=== PATIENT | male | born 1985 | race Caucasian/White ===

== ENCOUNTER 2016-07-23 20:34 | Emergency (ER) | payer OTHER ==
[~2016-07-23] VITALS: Ht 172.7 cm; Wt 89.1 kg
[2016-07-23 20:43] VITALS: TEMP 36.8; Ht 172.7 cm; Wt 89.1 kg
[2016-07-23] MEDS ORDERED: RANI150T3 PO (21:04)
[2016-07-23] MEDS ORDERED: AZITHROMYCIN 250 MG TAB PO STA (21:20)
[2016-07-23] MEDS ORDERED: IBUPROFEN 600 MG TAB PO STA (21:21)
[2016-07-23] MEDS ORDERED: HYCODAN 60ML BOTTLE HOMEPACK PO ONE (21:30)
[2016-07-23] MEDS ORDERED: ALBUTEROL HFA 8 GM INHALER INH ONE (21:30)
[2016-07-23] MEDS ORDERED: AZIT-60 PO (21:35)
[2016-07-23 21:57] VITALS: BP 147/101; PULSE 97; O2SAT 98
--- NOTE | 2016-07-23 23:09 | EMERGENCY ROOM VISIT NOTE ---
History Report prepared by Ebenezer: Lauren Senior Under the Supervision of: Dr. Tello Lo M.D. First contact with patient: 21:06 Chief Complaint: FLU LIKE SX Stated Complaint: COUGH, SORE THROAT, EARS HURT, STUFFY/RUNNY NOSE History of Present Illness The patient is a 31 year old male who presents to the Emergency Room with complaints of worsening flu-like symptoms for the past 4 days. He has been experiencing a productive cough, ear pain, sore throat, and sinus congestion. He has been taking Robitussin and Sudafed for his symptoms. He states that today his congestion has started to settle into his chest. He has been unable to sleep due to his symptoms. He also reports diarrhea and aching pain in his back. The patient rates his pain as a 6/10 in severity. Pt denies LOC, headache , fevers, chills, diaphoresis, visual changes, neck pain, chest pain, nausea, vomiting, abdominal pain, melena, hematochezia, urinary symptoms, numbness, weakness, lymphadenopathy, rash, or other complaints. He denies any sick contacts. Source of History: patient Onset: 4 days ago Position: other (global) Symptom Intensity: 6/10 Quality: other (flu-like) Timing: worsening Modifying Factors (Relieving): other (Sudafed/Robitussin) Associated Symptoms: + back pain, + cough, + diarrhea, + sorethroat Note: Pt notes sinus congestion and chest congestion. Review of Systems See HPI for pertinent positives and negatives. A total of ten systems were reviewed and were otherwise negative. Past Medical & Surgical Medical Problems: (1) Fatty liver (2) History of cholecystectomy (3) Kidney stone Family History Cancer Diabetes mellitus FH: heart disease Social History Smoking Status: Current Every Day Smoker Alcohol Use: none Marital Status: single Occupation Status: employed Current/Historical Medications Scheduled Azithromycin (Zithromax), 250 MG PO DAILY Scheduled PRN Ranitidine Hcl (Zantac), 150 MG PO DAILY PRN for Heartburn Allergies Coded Allergies: No Known Allergies (Unverified , 07/23/16) Physical Exam Vital Signs Date Time Temp Pulse Resp B/P Pulse Ox O2 Delivery O2 Flow Rate FiO2 07/23/16 21:57 97 20 147/101 98 07/23/16 20:43 36.8 99 18 141/91 99 Room Air Physical Exam GENERAL: Awake, alert, mildly ill appearing, no distress HEAD: Normocephalic, atraumatic. No edema. EYES: Normal conjunctiva. Sclera non-icteric. EARS: Right ear with mild fluid and mild redness. Left TM normal. NOSE: Mild congestion. OROPHARYNX: Lips, tongue, and mucosa unremarkable. No erythema or exudate. NECK: Supple. No nuchal rigidity. FROM. No adenopathy. Negative jolt accentuation test. RESPIRATORY: Small wheezing cleared with coughing on the right side. CTA bilaterally. No rales or rhonchi. CARDIAC: Borderline tachycardic rate, normal rhythm. ABDOMEN: Soft, non distended. No tenderness to palpation. NEURO: Normal sensorium. SKIN: No rash or jaundice noted Medical Decision & Procedures Medications Administered Medications (Trade) Dose Ordered Sig/Catie Route Start Time Stop Time Status Last Admin Dose Admin Azithromycin (Zithromax Tab) 500 mg NOW STAT PO 07/23/16 21:20 07/23/16 21:22 DC 07/23/16 21:29 500 MG Hydrocodone Bit/ Homatropine Methylb (Hycodan Elix Homepack 5/1.5MG/ 5ML) 1 homepack UD ONCE PO 07/23/16 21:30 07/23/16 21:31 DC 07/23/16 21:30 1 HOMEPACK Albuterol (Ventolin Hfa Inhaler) 2 puffs NOW ONCE INH 07/23/16 21:30 07/23/16 21:31 DC 07/23/16 21:30 2 PUFFS Ibuprofen (Motrin Tab) 600 mg NOW STAT PO 07/23/16 21:21 07/23/16 21:22 DC 07/23/16 21:28 600 MG ED Course 2114: The patient was evaluated in room C10. A complete history and physical exam was performed. At this time I discussed the results and treatment plan with the patient. I answered all pertaining questions that he had. He expressed understanding and verbalized agreement. The patient will be discharged home. 2119: Azithromycin 500 mg PO 2120: Ibuprofen 600 mg PO 2129: Albuterol 2 puffs INH, Hydrocodone Bit/Homatropine Methylb PO 1 homepack Medical Decision Triage Nursing notes reviewed. The patient's presentation and history were concerning for cough and URI symptoms. Etiologies such as viral syndrome, otitis, pharyngitis, pneumonia, sinusitis, as well as others were entertained. The patient was evaluated. He had a slight wheeze in the right side. He is a smoker. Patient had some slight fluid in the ear as well. He has sinus congestion. The patient was given an albuterol MDI, Motrin, Hycodan cough syrup to go, and a dose of Zithromax. I discussed treatment with him conservatively and he was in agreement. As she is doing relatively well this point in time we can defer blood work or x-ray imaging given I am going to treat him clinically. The patient was in agreement. I did counselor at law months sensation. The patient will follow-up with his PCP or return back to Emergency Room for any worsening symptoms.I gave my usual and customary discussion regarding this issue. By the evaluation outlined above other emergent etiologies such as those listed in the differential, as well as others, were deemed relatively unlikely. The patient and significant other were informed about the findings as listed above. All questions were answered and they were pleased with the treatment. Return instructions were outlined and the patient was discharged in stable condition. The patient was referred to his PCP for follow-up this week for a recheck of the current condition. The chart was completed utilizing [employer] Speech voice recognition software. Grammatical errors, random word insertions, pronoun errors, and incomplete sentences are an occasional consequence of this system due to software limitations, ambient noise, and hardware issues. Any formal questions or concerns about the content, text, or information contained within the body of this dictation should be directly addressed to the physician for clarification. Impression Primary Impression: Productive cough Additional Impressions: Wheezing Sinus congestion Scribe Attestation The scribe's documentation has been prepared under my direction and personally reviewed by me in its entirety. I confirm that the note above accurately reflects all work, treatment, procedures, and medical decision making performed by me. Departure Information Dispostion Home / Self-Care Prescriptions Azithromycin (ZITHROMAX) 250 Mg Tab 250 MG PO DAILY, #4 TAB Prov: Tello Lo MD 07/23/16 Referrals Kun Thomas M.D. (PCP) Forms HOME CARE DOCUMENTATION FORM, IMPORTANT VISIT INFORMATION Patient Instructions [facility] Additional Instructions Albuterol Inhaler: Take 2 puffs four times daily for five days, then as needed. Azithromycin(Zithromax) 250mg: Take one a day for 4 additional days. All antibiotics can cause diarrhea. If this occurs and you feel worse or it does not resolve in 1-2 days follow up with your doctor or return to the Emergency Department as this could be signs of serious underlying problems. Any medication can cause an allergic reaction, stop the pills immediately and return to the ER for rash, hives, breathing difficulties, or swelling. Acetaminophen(Tylenol) may be used for fever or pain. Use 1000mg every six hours as needed. Avoid using more than 4000mg in a 24 hour period. (AND/OR) Ibuprofen(Motrin, Advil) may be used for fever or pain. Use 600mg every six hours as needed. Take with food. Avoid using more than 2400mg in a 24 hour period. Do not use 2400mg per day for more than three consecutive days without physician direction. Prolonged inappropriate use can lead to stomach upset or ulcers. Hycodan syrup: use one teaspoon every 4 hours only as needed for severe cough. May cause drowsiness. No driving if using this medication. Rest and drink plenty of fluids. Avoid smoke/smoking. Return to the ER for chest pain, difficulty breathing, fevers, vomiting, worsening of your condition, or as needed. Follow up with your primary physician this week for a recheck of your current condition. Problem Qualifiers
== END 2016-07-23 21:59 | disposition home or self-care (01) ==
LOC: C.EDB 20:35 → C.EDC 21:59
DX: R05 Cough (principal); R06.2 Wheezing; R09.81 Nasal congestion; H92.09 Otalgia, unspecified ear; J02.9 Acute pharyngitis, unspecified; R19.7 Diarrhea, unspecified; M54.9 Dorsalgia, unspecified; F17.200 Nicotine dependence, unspecified, uncomplicated

== ENCOUNTER 2017-10-20 22:45 | Emergency (ER) | payer OTHER ==
[~2017-10-20] VITALS: Ht 172.7 cm; Wt 82.3 kg
[~2017-10-20 22:45] MED LIST: RANI150T3 PO
[2017-10-20 22:50] VITALS: BP 132/91; PULSE 106; TEMP 36.8; O2SAT 97; Ht 172.7 cm; Wt 82.3 kg
[2017-10-20] MEDS ORDERED: DOXYCYCLINE HYCLATE 100 MG CAP PO STA (23:00)
[2017-10-20] MEDS ORDERED: DOXY100C PO (23:08)
--- NOTE | 2017-10-22 00:08 | EMERGENCY ROOM VISIT NOTE ---
History First contact with patient: 22:54 Chief Complaint: BITE Stated Complaint: TICK BITE ON THUMB History of Present Illness The patient is a 32 year old male who presents to the Emergency Room with complaints of left thumb pain as well as a tick bite on his right leg. The patient states that he noticed a tick bite to his right thigh 4 days ago, and believes he was able to remove it in full. Additionally the patient has an infection of his left thumb that has been worsening over the past week. The patient does not recall injury or trauma. The thumb symptoms began after trimming his nails. He rates his discomfort a 4/10. Of note, he states that he has had a rash in the area where the tick was. No reports of fever or chills. The patient considers himself otherwise usually healthy and up-to-date on his tetanus. Review of Systems More than 10 systems were reviewed and otherwise negative with the exception of history of present illness. Past Medical/Surgical History Medical Problems: (1) Fatty liver (2) History of cholecystectomy (3) Kidney stone Family History Cancer Diabetes mellitus FH: heart disease Social History Smoking Status: Current Every Day Smoker Alcohol Use: none Marital Status: single Occupation Status: employed Current/Historical Medications Scheduled Doxycycline Hyclate (Vibramycin), 100 MG PO BID Scheduled PRN Ranitidine Hcl (Zantac), 150 MG PO DAILY PRN for Heartburn Physical Exam Vital Signs Date Time Temp Pulse Resp B/P (MAP) Pulse Ox O2 Delivery O2 Flow Rate FiO2 10/20/17 22:50 36.8 106 18 132/91 97 Room Air Physical Exam VITALS: Vitals are noted on the nurse's note and reviewed by myself. Vital signs stable. GENERAL: Well-developed, well-nourished, white male, who is in no acute distress and resting comfortably. Patient is cooperative with the examination. HEART: Regular rate and rhythm without murmurs gallops or rubs. LUNGS: Clear to auscultation bilaterally without wheezes, rales or rhonchi. No retractions or accessory muscle use. MUSCULOSKELETAL: Paronychia appreciated to the medial aspect of the left thumb and cuticle. This appears to be with mild serosanguineous drainage. No obvious purulence is noted. Neurovascular status is intact to the thumb. There is no lymphangitic streaking. Additionally there is a bull's-eye type rash measuring approximately 8 cm in diameter appreciated on the posterior aspect of the right thigh concerning for erythema migrans. NEURO: Patient was alert and oriented to person place and time. CN II through XII grossly intact Medical Decision & Procedures ED Course Physical exam and history were performed. Nursing notes, EMR, and Medication List were personally reviewed. Patient appears to have both a paronychia as well as a tick bite with erythema migrans. The patient and I had a discussion regarding options of care and utilizing shared decision making we elected to begin doxycycline. The patient was given a first dose to take tonight with food. We did discuss the side effects of the medication. The patient is to follow with his primary care physician with any ongoing or persisting symptoms. He was otherwise invited back to the ER anytime and was pleased with plan of care. The chart was completed utilizing [employer] Voice Recognition Software. Grammatical errors, random word insertions, pronoun errors, and incomplete sentences are an occasional consequence of this system due to software limitations, ambient noise, and hardware issues. Any formal questions or concerns about the content, text, or information contained within the body of this dictation should be directly addressed to the provider for clarification. . Medical Decision Differential diagnosis: Etiologies such as cellulitis, abscess, MRSA infection, DVT, necrotizing fasciitis, dermatitis, drug eruption, as well as others were entertained.. Impression Primary Impression: Paronychia of thumb, left Additional Impressions: Tick bite Erythema migrans (Lyme disease) Departure Information Dispostion Home / Self-Care Condition GOOD Prescriptions Doxycycline Hyclate (VIBRAMYCIN) 100 Mg Cap 100 MG PO BID for 21 Days, #42 CAP Prov: Yaw Kapoor PA-C 10/20/17 Forms HOME CARE DOCUMENTATION FORM, IMPORTANT VISIT INFORMATION Patient Instructions My [facility] Additional Instructions You were seen and evaluated today on an emergency basis only. This is not a substitute for, or an effort to provide, complete comprehensive medical care. It is not possible to recognize and treat all injuries or illnesses in a single emergency department visit. For this reason it is recommended that you followup with your primary care physician with any ongoing or persisting symptoms. Doxycycline twice a day for 21 days. Avoid exposure to the sun/UV light while on this medication or use frequent application of SPF 50 or higher due to increased sensitivity to UV rays and high risk for severe rodriguez. You are welcome to return to the emergency department anytime with new, worsening, or concerning symptoms. Problem Qualifiers
== END 2017-10-20 23:27 | disposition home or self-care (01) ==
LOC: C.EDB 22:46
DX: L03.012 Cellulitis of left finger (principal); S80.861A Insect bite (nonvenomous), right lower leg, initial encounter; W57.XXXA Bitten or stung by nonvenomous insect and other nonvenomous arthropods, initial encounter; A69.20 Lyme disease, unspecified; F17.200 Nicotine dependence, unspecified, uncomplicated

== ENCOUNTER 2017-11-09 15:29 | Emergency (ER) | payer OTHER ==
[~2017-11-09] VITALS: Ht 172.7 cm; Wt 82.8 kg
[~2017-11-09 15:29] MED LIST changes: +DOXY100C PO
[2017-11-09 15:30] VITALS: BP 128/87; PULSE 89; TEMP 36.9; O2SAT 99; Ht 172.7 cm; Wt 82.8 kg
[2017-11-09] MEDS ORDERED: ALBUTEROL HFA 8 GM INHALER INH STA (15:47)
--- NOTE | 2017-11-09 21:33 | EMERGENCY ROOM VISIT NOTE ---
History First contact with patient: 15:36 Chief Complaint: CONGESTION Stated Complaint: CHEST,COUGH,EARS,THROAT History of Present Illness The patient is a 32 year old male who presents to the Emergency Room with complaints of chest congestion, cough, sore throat and earaches. The patient reports that his cough and chest congestion started yesterday. His sore throat was worse this morning with bilateral ear pressure. The patient reports that he is currently on doxycycline for treatment of Lyme disease. He denies headache, neck pain, nausea, vomiting, diarrhea or urinary symptoms. He rates his discomfort a 7 out of 10. Review of Systems 10 system review was performed and was negative except for pertinent positives and negatives as indicated in history of present illness Past Medical/Surgical History Medical Problems: (1) Fatty liver (2) History of cholecystectomy (3) Kidney stone Family History Cancer Diabetes mellitus FH: heart disease Social History Smoking Status: Current Every Day Smoker Alcohol Use: occasionally Marital Status: single Occupation Status: employed Current/Historical Medications Scheduled Doxycycline Hyclate (Vibramycin), 100 MG PO BID Scheduled PRN Ranitidine Hcl (Zantac), 150 MG PO DAILY PRN for Heartburn Physical Exam Vital Signs Date Time Temp Pulse Resp B/P (MAP) Pulse Ox O2 Delivery O2 Flow Rate FiO2 11/09/17 15:34 98 Room Air 11/09/17 15:30 36.9 89 17 128/87 99 Room Air Physical Exam CONSTITUTIONAL: Healthy and well nourished. Alert and oriented X 3 with positive affect. Patient does not appear toxic or acutely ill. HEENT: Normocephalic, atraumatic. Pupils equal, round and reactive. Examination shows mild TM bulging without evidence for air-fluid levels, purulent effusion or TM erythema. Bony landmarks and light reflexes are visible with moderate cerumen accumulation bilaterally. OROPHARYNX: Patient has mild posterior pharyngeal erythema without tonsillar hypertrophy or exudates. No postnasal drip. NECK: Full active range of motion without discomfort. No nuchal rigidity. RESPIRATORY: Clear to auscultation bilaterally with no wheezing, crackles, rhonchi or stridor. CARDIOVASCULAR: Regular rate and rhythm with no murmurs, rubs or gallops. MUSCULOSKELETAL: Full range of motion of all joints without discomfort. INTEGUMENTARY: No rash or other significant dermatologic conditions noted. NEUROLOGIC: No focal neurologic deficits noted. Medical Decision & Procedures Medications Administered Medications (Trade) Dose Ordered Sig/Catie Route Start Time Stop Time Status Last Admin Dose Admin Albuterol (Ventolin Hfa Inhaler) 2 puffs ONE STAT INH 11/09/17 15:47 11/09/17 15:48 DC 11/09/17 15:47 2 PUFFS ED Course Patient history and physical exam were performed. Nurse's notes were reviewed. Vital signs were reviewed and were normal. The patient is afebrile and not tachycardic. O2 saturation is 99% on room air. Examination and history are consistent with viral URI. The patient was advised that his symptoms are not improving because his infection is viral, and antibiotics do not kill viruses. Patient was given additional instructions for symptomatic relief, including alternating ibuprofen and Tylenol as needed for pain. An albuterol metered- dose inhaler with AeroChamber was dispensed with instructions for use. The patient was encouraged to follow-up with his PCP if symptoms are not improving within the next week. The patient voiced understanding of all discharge instructions, and rated his overall discomfort a 5 out of 10 at the conclusion of my exam. Medical Decision Medication Reconcilliation Current Medication List: was personally reviewed by me Blood Pressure Screening Patient's blood pressure: Normal blood pressure Impression Primary Impression: Viral URI with cough Departure Information Dispostion Home / Self-Care Condition FAIR Forms HOME CARE DOCUMENTATION FORM, IMPORTANT VISIT INFORMATION Patient Instructions My [facility], ED URI Viral Additional Instructions Symptoms are likely secondary to a viral infection that will not respond to antibiotics. Ibuprofen 800 mg and/or Tylenol 1000 mg every 8 hours for pain/fever. You may also alternate these medications for more effective relief: Ibuprofen --4 HRS--> Tylenol --4 HRS--> ibuprofen --4 HRS--> Tylenol .... Administer albuterol 2 puffs every 4 hours as needed for cough. You may also take other OTC medication such as Sudafed (congestion), Robitussin (cough) and antihistamines such as Claritin (runny nose). Follow-up with your family doctor if symptoms are not improving within the next week.
== END 2017-11-09 15:55 | disposition home or self-care (01) ==
LOC: C.EDB 15:30 → C.EDD 15:55
DX: J06.9 Acute upper respiratory infection, unspecified (principal); F17.200 Nicotine dependence, unspecified, uncomplicated

== ENCOUNTER 2017-11-10 22:37 | Emergency (ER) | payer OTHER ==
[~2017-11-10] VITALS: Ht 172.7 cm; Wt 83.3 kg
[2017-11-10 22:39] VITALS: TEMP 36.3; Ht 172.7 cm; Wt 83.3 kg
[2017-11-10] MEDS ORDERED: ALBUT/IPRATROP 3MG/0.5MG NEB 3 ML VIAL INH STA (23:36)
[2017-11-10] MEDS ORDERED: HYDROCODONE/HOMATROPINE SYRUP 5MG/1.5MG 5ML UDP PO STA (23:36)
[2017-11-11] MEDS ORDERED: DXY/100 PO (00:11)
[2017-11-11] MEDS ORDERED: DEXT30SU8 PO (00:15)
[2017-11-11] MEDS ORDERED: RBTUDL5 PO (00:15)
[2017-11-11] MEDS ORDERED: MULT-506 PO (00:16)
[2017-11-11 00:29] VITALS: BP 126/82; PULSE 85; O2SAT 98
[2017-11-11] MEDS ORDERED: HYDR5SYP11 PO (00:47)
[2017-11-11] MEDS ORDERED: SODIUM CHLORIDE 0.65% NA SOLN 45 ML (OCEAN) STA (00:50)
[2017-11-11] MEDS ORDERED: HYCODAN 60ML BOTTLE HOMEPACK PO STA (00:50)
--- NOTE | 2017-11-11 00:50 | EMERGENCY ROOM VISIT NOTE ---
History First contact with patient: 23:28 Chief Complaint: CONGESTION Stated Complaint: CHEST,HEAD,THROAT,COUGH,CONGESTION Nursing Triage Summary: Pt was here the other day with cold symptoms. Pt used OTC medications but is not any better. Pt complains of chest congestion, cough, head cold and fatigue. History of Present Illness The patient is a 32 year old male who presents to the Emergency Room via private vehicle with complaints of "chest, head, throat, cough, congestion". Patient states that he has been experiencing 4 days of sore throat that progressed into tightness in his chest, that is worse with a cough. He notes sinus congestion as well. He feels as though the lymph nodes in his throat or swollen. He states he was seen here recently given an inhaler which helped a little bit. He notes his symptoms persist therefore prompting his arrival here today. He denies any heart history, or history of blood clots. He notes associated fever, chills, sore throat. His cough elicits a yellow phlegm/ sputum. He does smoke. Review of Systems A complete 10-point Review of Systems was discussed with the patient, with pertinent positives and negatives listed in the History of Present Illness. All remaining Review of Systems questions can be considered negative unless otherwise specified. Past Medical/Surgical History Medical Problems: (1) Fatty liver (2) History of cholecystectomy (3) Hypertension (4) Kidney stone (5) Kidney stones Family History Cancer Diabetes mellitus FH: heart disease Social History Smoking Status: Current Every Day Smoker Alcohol Use: occasionally Marital Status: single Occupation Status: employed Current/Historical Medications Scheduled Doxycycline Hyclate (Doxycycline Hyclate), 100 MG PO BID Multivitamin (Multivitamin), 1 TAB PO DAILY Scheduled PRN Guaifenesin (Robitussin), 10 ML PO Q6H PRN for Cough Hydrocodone W/ Homatropine (Hycodan 5/1.5MG 5 Ml), 5 ML PO Q4H PRN for Cough Physical Exam Vital Signs Date Time Temp Pulse Resp B/P (MAP) Pulse Ox O2 Delivery O2 Flow Rate FiO2 11/11/17 00:29 85 16 126/82 98 Room Air 11/10/17 22:39 36.3 80 20 134/85 98 Room Air Physical Exam VITAL SIGNS - Vital signs and nursing notes were reviewed. Stable. Afebrile. GENERAL -32-year-old male appearing his stated age who is in no acute distress. Communicates well with provider and answers questions appropriately. SKIN - Without rashes. No meningeal or petechial rash. HEAD - NC/AT. EYES - PERRL with EOMI bilaterally. Sclera anicteric. EARS - No deformities of external structures noted on gross examination bilaterally. External auditory canals without discharge or otorrhea. Tympanic membranes pearly martinez without retraction or bulging. No fluid or purulent material visualized behind the TM. Handle of malleus, umbo, cone of light, pars tensa/flaccid all easily visualized. NOSE - Midline and without cyanosis. No epistaxis or purulent drainage noted. MOUTH/OROPHARYNX - Without perioral cyanosis. Buccal mucosa pink and moist and without leukoplakia. Tongue midline with equal elevation of palate bilaterally. No tonsillar hypertrophy, erythema, or exudates noted. Fair dentition noted. NECK - Neck with FROM. Supple to palpation. No lymphadenopathy noted. No nuchal rigidity. LUNGS - Chest wall symmetric without accessory muscle use, intercostals retractions, or central cyanosis. Diffuse wheezing noted bilaterally. CARDIAC - RRR with S1/S2. No murmur, rubs, or gallops appreciated. EXTREMITIES - No clubbing or peripheral cyanosis. No pretibial edema present. NEUROLOGIC - Cranial nerves II through XII grossly intact. Sensory intact to light touch throughout. PSYCH - A&O, and cooperates fully with examiner. Pt is very pleasant and interacts well with examiner. Medical Decision & Procedures ER Provider Diagnostic Interpretation: Chest 2 view: As read by myself and the attending physician: Normal. No pneumonia, infiltrate, or emergent process. Medications Administered Medications (Trade) Dose Ordered Sig/Catie Route Start Time Stop Time Status Last Admin Dose Admin Albuterol/ Ipratropium (Duoneb) 3 ml NOW STAT INH 11/10/17 23:36 11/10/17 23:39 DC 11/10/17 23:47 3 ML Hydrocodone Bit/ Homatropine Methylb (Hycodan Syrup) 5 ml NOW STAT PO 11/10/17 23:36 11/10/17 23:39 DC 11/10/17 23:47 5 ML Medical Decision Patient was seen and evaluated as above in room C 12. Review was performed of nursing notes and vital signs. After obtaining a thorough history and physical examination the above work up was performed. He presents today with chest congestion, head congestion specifically in the sinuses, sore throat, cough. He is nontoxic on examination. He began with the sore throat congestion which then led to the chest congestion. It is worse with a deep breath then he coughs a yellow phlegm. No history of PE or blood clots. His vital signs are stable. I believe this all to be a viral URI. I did review previous note which I believe was appropriate assessment at that time. I will add a chest x- ray today and a breathing treatment. He is reevaluated after breathing treatments and the cough syrup and feeling better. Chest x-ray no acute process. I suspect viral URI. He was informed that no antibiotic or specific medication will completely relieve his symptoms as this time will have to pass in his body will have to clear the infection on its own. He is on doxycycline for the Lyme. I do not suspect meningitis, encephalitis, pneumonia, or any other emergent process. I do not suspect SC or PE. His symptoms all fit with a viral process of the upper respiratory tract. He will be given a short prescription for the Hycodan cough syrup. Saline nasal spray. Sudafed for the sinus congestion. No red flags in the [place] drug monitoring system. The patient was educated upon management, educated upon todays findings/results , educated upon symptoms in which to return, had questions answered prior to discharge, and was discharged home in good condition. Case was discussed with the attending physician. In the evaluation and treatment of this patient the following differential diagnoses were entertained: SC, PE, meningitis, encephalitis, viral URI, pneumonia, among others. Impression Primary Impression: Viral URI with cough Departure Information Dispostion Home / Self-Care Condition GOOD Prescriptions Hydrocodone W/ Homatropine (HYCODAN 5/1.5MG 5 ML) 1 Syp Syp 5 ML PO Q4H Y for Cough, #90 ML Prov: Rene West PA-C 11/11/17 Referrals Kun Thomas M.D. (PCP) Patient Instructions My [facility] Additional Instructions You have been treated in the Emergency Department for cough and chest congestion. You have received cough medicine in the emergency department which impairs your ability to operate a vehicle. It is illegal for you to drive after receiving these medicines. You may take 5 mL's of the Hycodan cough syrup every 4-6 hours as needed. Do not take more than 30 mL's per day. Please do not drive this medication. This is for severe cough. This is a narcotic medication. You cannot drive or consume alcohol while on this medicine. This medicine should only be used for symptoms that cannot be controlled with [id number] pain medicines. You may continue the doxycycline. Please continue using the inhaler. Please use saline nasal spray, 1 spray each nostril daily. For pain control, you can use the following [id number] medicines (if >12 yo): - Regular strength (325mg/tab) Tylenol (acetaminophen) 2 tabs every 4-6 hours as needed. Do not exceed 12 tablets in a 24 hour period. Avoid taking more than 3 grams (3000 mg) of Tylenol per day. This includes any other sources of acetaminophen you may take on a regular basis. - Regular strength (200 mg/tab) Advil (ibuprofen) 1-2 tabs every 4-6 hours as needed. Do not exceed a dose of 3200 mg per day. If this is an acute injury, ice can be applied to the area of pain for the first 3 days to help decrease pain and inflammation. After the first 3 days, a heating pad can be used over the area for continued soothing relief. You should schedule a follow-up appointment in 2-3 days with your Primary Care Provider for further evaluation and treatment of your symptoms Return to the Emergency Department if your current symptoms worsen despite treatment course outlined above, or if you develop any of the following symptoms : Any new/concerning symptoms.
--- NOTE | 2017-11-11 06:00 | DIAGNOSTIC IMAGING REPORT ---
CHEST 2 VIEWS ROUTINE CLINICAL HISTORY: 32 years-old Male presenting with Cough and congestion. TECHNIQUE: PA and lateral views of the chest were obtained. COMPARISON: 05/25/2014. FINDINGS: Cardiomediastinal silhouette normal. Lungs and pleural spaces clear. Osseous structures normal. Cholecystectomy clips noted. IMPRESSION: 1. No acute cardiopulmonary disease. Electronically signed by: Keny Dominguez M.D. 11/11/2017 5:59 AM Dictated Date/Time: 11/11/2017 5:58 AM
== END 2017-11-11 00:58 | disposition home or self-care (01) ==
LOC: C.EDB 22:37 → C.EDC 11-11 00:58
DX: J06.9 Acute upper respiratory infection, unspecified (principal); I10 Essential (primary) hypertension; F17.200 Nicotine dependence, unspecified, uncomplicated